=== PATIENT | male | born 1980 | race Caucasian/White ===

== ENCOUNTER → 2021-08-04 11:52 | Outpatient (CLI) | payer BC, SELFPAY ==
[2021-08-04 12:51] LABS: COVID19 -Nasal RAPID Negative (Negative)
== END ==
PROVIDERS: Visit Provider Nurse Practitioner Family
DX: Z20.822 Contact with and (suspected) exposure to COVID-19 (principal); J02.9 Acute pharyngitis, unspecified; R09.81 Nasal congestion; R09.89 Other specified symptoms and signs involving the circulatory and respiratory systems
CPT/HCPCS: 87070; 87635

== ENCOUNTER → 2025-08-17 08:32 | Outpatient (CLI) | payer BC, SELFPAY ==
[2025-08-18 12:00] LABS: Urine N gonorrhoeae NOT DETECTED
[2025-08-18 12:02] LABS: Urine Chlamydia NOT DETECTED
== END ==
PROVIDERS: Visit Provider Registered Nurse
DX: R30.0 Dysuria (principal)
CPT/HCPCS: 87086; 87491; 87591